=== PATIENT | female | born 1990 | race Caucasian/White ===

== ENCOUNTER 2020-11-03 22:22 | Emergency (ER) | payer BC, OTHER ==
[2020-11-03] MEDS ORDERED: ONDANSETRON *ODT* 4 MG TABLET SL ONE (22:40)
[2020-11-03 22:43] VITALS: BP 108/57; PULSE 72; TEMP 98; BMI 29.2
[2020-11-03] MEDS ORDERED: ONDANSETRON *ODT* 4 MG TABLET ONE (22:44)
== END 2020-11-03 22:57 | disposition home or self-care (01) ==
LOC: FER 22:22
DX: R11.0 Nausea (principal); Z20.828 Contact with and (suspected) exposure to other viral communicable diseases
CPT/HCPCS: 99283-25; C9803; Q0162; U0003

== ENCOUNTER 2023-06-14 13:27 | Emergency (ER) | payer OTHER ==
[2023-06-14 14:17] VITALS: BP 96/54; PULSE 57; RESP 18; TEMP 98.2; BMI 30.2
[2023-06-14 15:40] LABS: ALBUMIN 4.3 g/dl (3.4-5.0); BILIRUBIN,TOTAL 0.3 mg/dl (0.2-1); BLOOD UREA NITROGEN 12.1 mg/dl (7-18); CALCIUM 9.1 mg/dl (8.5-10.1); CREATININE 0.9 mg/dl (0.6-1.3); POTASSIUM 4.6 mmol/L (3.5-5.1); SGOT/AST 12.7 U/L (15-37); TOT PROT 6.4 g/dl (6.4-8.2)
[2023-06-14 15:51] LABS: HEMATOCRIT 37.8 % (32.4-45.2); HEMOGLOBIN 12.5 G/dL (10.7-15.3); MCH 27.8 pg (25.7-33.7); MEAN CELL VOLUME 84.2 fl (80-96); MEAN PLT VOLUME 10.1 fl (7.5-11.1); PLATELET COUNT 156.2 10^3/uL (134-434); RBC 4.49 10^6/uL (3.60-5.2); RDW 15.4 % (11.6-15.6); WHITE BLOOD COUNT 5.2 10^3/uL (4.0-10.8)
[2023-06-14 21:24] LABS: ANISOCYTOSIS 1+; PLATELET ESTIMATE ADEQUATE
== END 2023-06-14 16:24 | disposition left against medical advice (07) ==
LOC: FER 13:27
DX: R42 Dizziness and giddiness (principal); R07.89 Other chest pain; F41.9 Anxiety disorder, unspecified; R11.0 Nausea
CPT/HCPCS: 36415; 80053; 84484; 84703; 85027; 93005; 99284-25

== ENCOUNTER 2023-10-21 10:57 | Emergency (ER) | payer OTHER ==
[2023-10-21 11:35] LABS: HEMATOCRIT 37.1 % (32.4-45.2); HEMOGLOBIN 12.1 G/dL (10.7-15.3); MCH 27.5 pg (25.7-33.7); MCHC 32.7 g/dl (32.0-36.0); MEAN PLT VOLUME 10.5 fl (7.5-11.1); PLATELET COUNT 161.5 10^3/uL (134-434); RBC 4.42 10^6/uL (3.60-5.2); RDW 15.1 % (11.6-15.6); WHITE BLOOD COUNT 5.4 10^3/uL (4.0-10.8)
[2023-10-21 11:43] LABS: ALBUMIN 4.2 g/dl (3.4-5.0); ALK PHOS 34 U/L (45-117); ANION GAP 6 mmol/L (4-13); BILIRUBIN,TOTAL 0.5 mg/dl (0.2-1); CALCIUM 9.2 mg/dl (8.5-10.1); CHLORIDE 108 mmol/L (98-107); CO2 23 mmol/L (21-32); CREATININE 0.6 mg/dl (0.6-1.3); GLUCOSE,RANDOM 97 mg/dl (74-106); SGOT/AST 12 U/L (15-37); SGPT/ALT 11 U/L (7-52); SODIUM 137 mmol/L (136-145); TOT PROT 6.7 g/dl (6.4-8.2)
[2023-10-21 11:50] LABS: PLATELET ESTIMATE ADEQUATE
[2023-10-21 12:19] VITALS: BP 101/58; PULSE 60; RESP 18; TEMP 98.8; BMI 30.2
== END 2023-10-21 12:44 | disposition home or self-care (01) ==
LOC: FER 10:57
DX: R07.89 Other chest pain (principal); Z20.822 Contact with and (suspected) exposure to COVID-19
CPT/HCPCS: 0241U-QW; 36415; 71045-TC-FY; 80053; 84443; 84484; 84703; 85027; 93005; 99285-25